=== PATIENT | male | born 1945 | race Caucasian/White ===

== ENCOUNTER → 2020-10-17 13:02 | Outpatient (BNVA) | payer MEDICARE, BC, SELFPAY | PROVIDERS: PCP Internal Medicine; Visit Provider Urology | DX: N40.1 Benign prostatic hyperplasia with lower urinary tract symptoms (principal); N13.8 Other obstructive and reflux uropathy; R97.20 Elevated prostate specific antigen [PSA] | CPT/HCPCS: 81002; 99212 ==

== ENCOUNTER → 2021-06-13 14:59 | Outpatient (BNVA) | payer MEDICARE, BC, SELFPAY | PROVIDERS: PCP Internal Medicine; Visit Provider Urology | DX: N40.1 Benign prostatic hyperplasia with lower urinary tract symptoms (principal); N13.8 Other obstructive and reflux uropathy; R97.20 Elevated prostate specific antigen [PSA] | CPT/HCPCS: 99212 ==

== ENCOUNTER → 2021-12-14 12:47 | Outpatient (BNVA) | payer MEDICARE, BC, SELFPAY | PROVIDERS: PCP Internal Medicine; Visit Provider Urology | DX: N40.1 Benign prostatic hyperplasia with lower urinary tract symptoms (principal); N13.8 Other obstructive and reflux uropathy; R97.20 Elevated prostate specific antigen [PSA] | CPT/HCPCS: Q3014 ==

== ENCOUNTER → 2022-12-17 13:16 | Outpatient (BNVA) | payer MEDICARE, BC, SELFPAY | PROVIDERS: PCP Internal Medicine; Visit Provider Urology | DX: R97.20 Elevated prostate specific antigen [PSA] (principal); N40.1 Benign prostatic hyperplasia with lower urinary tract symptoms; N13.8 Other obstructive and reflux uropathy | CPT/HCPCS: 51798; 99212 ==

== ENCOUNTER 2023-12-16 13:25 | Outpatient (AMB) | payer MEDICARE, BC, SELFPAY ==
--- NOTE | 2023-12-16 13:29 | A.OFFVIS_ITS ---
Intake Intake Visit Reasons: 1Y PVR/PSA(set) Intake Note: Patient is Present for Follow Up PSA Urology Medication: Finasteride Antibiotic Allergies:None Blood Thinners: Aspirin PVR: 29 Allergies No Known Allergies Allergy (Verified 12/16/23 13:35) HPI HPI Comments History of Present Illness Details David is a pleasant male. He is a patient of Dr. Hoff. He seen for the following urologic issues - elevated PSA - lower urinary tract symptoms PSA stabilized 2.4 Continue to follow yearly May use finasteride - Friday, Friday, Friday Elevated PSA/Abnormal MILVIA: He presents for further evaluation of elevated PSA Current management is medication with 5AR. Laboratory investigations include a total PSA evaluation March 2014 5.6, January 2017 6.4, 02/25 5.6 35%, 08/27 5.8 32%, 02/26 5.6 F 20%. - 05/30 2.4, 12/01 2.1, 12/02 2.3, 12/03 2.4 Individualized Prostate Cancer Risk Calculator 10% chance of high-grade prostate cancer, 20% chance of low-grade. Baseline risk with PSA of 4 is 7% high-grade, 19% low-grade., Would like to continue with observation and understands and accepts the risks of a possible delay in diagnosis. Overall symptoms are mild. Therapeutic plan will be continue with finasteride and intermittent review [facility] Medical History Diverticulosis Benign prostatic hyperplasia with lower urinary tract symptoms Elevated PSA Surgical History History of surgery Review of Systems Const Denies chills and Denies fever(s) Card Reports no additional complaints and Denies syncope Resp Denies cough GI Denies abdominal pain and Denies heartburn Reports as per HPI and Denies change in libido Neuro Denies syncope Psych Denies change in libido Endo Denies change in libido Physical Exam Const General: cooperative, healthy appearing, comfortable and no acute distress Orientation/consciousness: patient oriented x3 HEENT Face and sinus: Yes normal facial exam Mouth: moist mucous membranes Neck Neck: Yes normal visual inspection, Yes full ROM and Yes trachea midline Chest Chest palpation & inspection: normal inspection of the chest Resp Effort & Inspection: normal respiratory effort, able to speak in complete sentences and no respiratory distress GI Inspection: Yes normal to inspection Back/Spine/Pelvis Cervical Spine: normal cervical lordosis Thoracic/Lumbar Spine: thoracic and lumbar spine normal to inspection Skin General skin exam: no rashes or lesions noted Neuro General: patient oriented x3, gait normal, tone normal and moves all extremities Extrem General: Yes normal to inspection and Yes capillary refill normal Office Procedures Post Void Residual Post Residual Void Post Void Residual (PVR): 29 [id number] Void Residual by ultrasound Assessment & Plan Assessment & Plan (1) BPH w urinary obs/LUTS: Code(s): N40.1 - Benign prostatic hyperplasia with lower urinary tract symptoms; N13.8 - Other obstructive and reflux uropathy (2) Elevated PSA: Code(s): R97.20 - Elevated prostate specific antigen [PSA] Plan Twelve month follow-up Orders: Orders AMB Post Void Residual by ultrasound Today N13.8 - Other obstructive and reflux uropathy, N40.1 - Benign prostatic hyperplasia with lower urinary tract symptoms Prostate Specific Antigen 364 Days N13.8 - Other obstructive and reflux uropathy, N40.1 - Benign prostatic hyperplasia with lower urinary tract symptoms Patient Instructions: Imaging studies, laboratory and physical exam results were discussed and reviewed in detail. No major barriers to patient understanding were identified. An opportunity to ask questions regarding the treatment plan was provided. All questions were answered. The patient expressed understanding and agreement with the above treatment plan. The patient is aware they should contact our office by phone for worsening of their current condition or the appearance of new urologic symptoms. Compliance is encouraged with any medications and followup testing that is ordered. It is a privilege to participate in the urologic care of your patient. If you have any questions or concerns regarding treatment for the above conditions, or other urologic issues, please do not hesitate to contact me. The office telephone contact is [phone]. This note is constructed using voice recognition software. While every effort has been made to ensure accuracy purchasing assistant errors may have been included. Yours sincerely, Dr Matias Triana MD, JESS [facility] - Urology Providers of Expert, Compassionate Care for the Genitourinary System Coding Level of Care Code Est Pt Level 4 (30554) Diagnoses BPH w urinary obs/LUTS N40.1; N13.8 Elevated PSA R97.20 CPT Codes Post Residual Void - PVR CPT Code: 09077-Qbkv Void Residual by ultrasound ([id number])
== END 2023-12-16 14:14 | disposition home or self-care (01) ==
PROVIDERS: Visit Provider Urology
DX: N40.1 Benign prostatic hyperplasia with lower urinary tract symptoms (principal); N13.8 Other obstructive and reflux uropathy; R97.20 Elevated prostate specific antigen [PSA]
CPT/HCPCS: 99213

== ENCOUNTER → 2023-12-16 13:25 | Outpatient (BNVA) | payer MEDICARE, BC, SELFPAY | PROVIDERS: Visit Provider Urology | DX: N40.1 Benign prostatic hyperplasia with lower urinary tract symptoms (principal); N13.8 Other obstructive and reflux uropathy; R97.20 Elevated prostate specific antigen [PSA] | CPT/HCPCS: 51798; 99212 ==

== ENCOUNTER 2024-12-14 13:39 | Outpatient (AMB) | payer MEDICARE, BC, SELFPAY ==
--- NOTE | 2024-12-14 13:40 | MHC.OFFVIS ---
Intake Visit Reasons: 1Y PVR/PSA(set) Intake Note: Patient is present for 1y PVR/PSA Urology Medication:FINASTERIDE Antibiotic Allergy:NONE Blood Thinner:ASPIRIN Last PVR:29ML'S Todays PVR:77ML'S Manager Trade Required: No Allergies No Known Allergies Allergy (Verified 12/14/24 13:41) HPI Comments Details: David is a pleasant male. He is a patient of Dr. Hoff. He seen for the following urologic issues - elevated PSA - lower urinary tract symptoms Yearly follow-up PSA stabilized 2.4 Continue to follow yearly May use finasteride - Friday, Friday, Friday Elevated PSA/Abnormal MILVIA: He presents for further evaluation of elevated PSA Current management is medication with 5AR. Laboratory investigations include a total PSA evaluation March 2014 5.6, January 2017 6.4, 02/25 5.6 35%, 08/27 5.8 32%, 02/26 5.6 F 20%. - 05/30 2.4, 12/01 2.1, 12/02 2.3, 12/03 2.4, 12/04 2.1 Individualized Prostate Cancer Risk Calculator 10% chance of high-grade prostate cancer, 20% chance of low-grade. Baseline risk with PSA of 4 is 7% high-grade, 19% low-grade., Would like to continue with observation and understands and accepts the risks of a possible delay in diagnosis. Overall symptoms are mild. Therapeutic plan will be continue with finasteride and intermittent review [facility] Medical History Diverticulosis Benign prostatic hyperplasia with lower urinary tract symptoms Elevated PSA Surgical History History of surgery Office Procedures Post Void Residual Post Residual Void Post Void Residual (PVR): 77 [id number] Void Residual by ultrasound Results AMB Urinalysis, Automated UA Leukoctes 0 Raquel/uL Last Edit by HERVE Grubbs on 12/14/24 13:55 UA Nitrite Negative Last Edit by HERVE Grubbs on 12/14/24 13:55 UA Urobilinogen 0.2 mg/dL Last Edit by HERVE Grubbs on 12/14/24 13:55 UA Protein 0 mg/dL Last Edit by HERVE Grubbs on 12/14/24 13:55 UA pH 6.0 Last Edit by HERVE Grubbs on 12/14/24 13:55 UA Blood 0 Jayson/uL Last Edit by HERVE Grubbs on 12/14/24 13:55 UA Specific Franklin 1.010 Last Edit by HERVE Grubbs on 12/14/24 13:55 UA Ketone Negative Last Edit by HERVE Grubbs on 12/14/24 13:55 UA Bilirubin 0 mg/dL Last Edit by HERVE Grubbs on 12/14/24 13:55 UA Glucose 0 mg/dL Last Edit by HERVE Grubbs on 12/14/24 13:55 Assessment & Plan Assessment & Plan Orders: Orders AMB Urinalysis Automated Today Z13.9 - Encounter for screening, unspecified Coding CPT Codes Post Residual Void - PVR CPT Code: 29563-[id number] Void Residual by ultrasound ([id number])
--- OUTSIDE RECORDS SUMMARY | 2024-12-14 13:51 | XMS_ITS | Encounter Summary ---
Author Organization [facility] Address [address] [place] [id number] Care Team Providers Care Piping Engineer Name Role Phone Anderson Davis MD Primary Care Provider [phone] Encounter Details Date Type Department Care Team ([facility] st Contact Info) Description 01/29/[address] [facility] [address] [facility] [address] [place] [address] Hansel Lopez MD [address] [facility] [address] [place] [address] Social History Tobacco Use Types Packs/Day Years Used Date Smoking Tobacco: Former Cigarettes Q uit: 1989 Cigars Smokeless Tobacco: Never Alcohol Use Standard Drinks/Week Comments Not Currently 0 (1 standard drink = 0.6 oz pur e alcohol) Stopped Thanks2003 Sex and Gender Information Value Date Recorded Sex Assigned at Not on file Gender Identity Male 08/29/2022 12:09 PM EDT Sexual Orientation Heterosexual (straight) 08/29 12:09 PM EDT COVID-19 Exposure Response Date Recorded In the last 10 days, have yo u been in contact with someone who was confirmed or suspected to have Coronavirus/COVID-19? No / Unsure 01/29/2023 9:55 AM EDT documented as of this encounter Plan of Treatment Not on file documented as of this encounter Procedures Procedure Name Priority Date/Time Associated Diagnosis Comments PATHOLOGY REPORT 01/29/2023 12:0 0 AM EDT documented in this encounter Results * PATHOLOGY REPORT (01/29/2023 12:00 AM EDT) Hansel Lopez MD PATHOLOGY/CYTOLOGY O RDERABLES documented in this encounter Visit Diagnoses Not on filedocumented in this encounter Care Teams Piping Engineer Relationship Specialty Start Date End Date Anderson Davis MD [address] [place] [id number] PCP - General Internal Medicine 08/14/22 documented as of this encounter
--- OUTSIDE RECORDS SUMMARY | 2024-12-14 13:51 | XMS_ITS ---
Author Name [facility] Organization Unknown History of Medication Use Medication Directions Dispensed Refills Start Date End Date Stat us metoPROLOL TARTRATE (LOPRESSOR) 50 MG tablet 04/23/2019 active finasteride (PROSCAR) 5 MG tablet 11/10/2016 active polyethylene glycol-electrolytes (NuLYTELY, TRILYTE) 420 g solution Take as directed for Colonoscopy/GI Procedure. See administration instructions. 11/19/2022 01/29/2023 active Problems Problem Status Onset Date Problem Type Date of Resoluti on Source Colon cancer screening active 2022-11-19 [facility] History of alcohol use disorder active 2022-11-19 Problem[facility] Diverticulosis active 2022-11-[address] Family history of colon cancer active 2022-11-19 ProblemAct [facility]
--- OUTSIDE RECORDS SUMMARY | 2024-12-14 13:51 | XMS_ITS | Clinical Summary ---
Author Organization [facility] ity Address [address] [place] [address] Care Team Providers Care Pharmacist In Charge Owner Name Role Phone Conrad Cárdenas MD Primary Care Provider Social History Tobacco Use Types Packs/Day Years Used Date Smoking Tobacco: Never Assessed Sex and Gender Information Value Date Recorded Sex Assigned at Not on file Gender Identity Not on file Sexual Orientation Not on file Plan of Treatment Health Maintenance Due Date Last Done Comments DTaP,Tdap,and Td Vaccines (1 - Tdap) 1966 Zoster Vaccines (1 of 2) 1997 Pneumococcal Vaccine: 65+ Years (1 of 1 - PCV) 2012 RSV Immunization Patients 60 + Years Old (1 - 1-dose 75+ series) 2022 COVID-19 Vaccine (3 - 2023-2 5 season) 2024 01/25/2021, 01/04/2021 Influenza Vaccine (#1) 2024 HIB Vaccines Aged Out No longer eligi ble based on patient's age to complete this topic HPV Vaccines Aged Out No longer eligi ble based on patient's age to complete this topic Hepatitis A Vaccines Aged Out No long er eligible based on patient's age to complete this topic Hepatitis B Vaccines Aged Out No long er eligible based on patient's age to complete this topic IPV Vaccines Aged Out No longer eligi ble based on patient's age to complete this topic MMR Vaccines Aged Out No longer eligi ble based on patient's age to complete this topic Meningococcal ACWY Vaccine Aged Out N o longer eligible based on patient's age to complete this topic RSV Immunization Patients Under 20 months Aged Out No longer eligible b ased on patient's age to complete this topic Varicella Vaccines Aged Out No longer eligible based on patient's age to complete this topic Care Teams Pharmacist In Charge Owner Relationship Specialty Start Date End Date Conrad Cárdenas MD [facility] [id number] [place] [address] PCP - General Cardiothoracic Surgery 04/22/19
--- OUTSIDE RECORDS SUMMARY | 2024-12-14 13:51 | XMS_ITS | Clinical Summary ---
Author Organization [facility] Address [address] [place] [address] Care Team Providers Care Instructor Creeler Name Role Phone Conrad Cárdenas MD Primary Care Provider [phone] Immunizations Name Administration Dates Next Due Covid-19 (Pfizer) Dilution Required 01/25/2021,0 01/04/2021 Social History Tobacco Use Types Packs/Day Years Used Date Smoking Tobacco: Never Assessed Sex and Gender Information Value Date Recorded Sex Assigned at Male 01/03/2021 1:20 PM EST Gender Identity Not on file Sexual Orientation Not on file Plan of Treatment Health Maintenance Due Date Last Done Comments Hepatitis C Screening 1945 Depression Screening 1959 Preventative Health Evaluation 1965 DTap / Tdap / Td (1 - Tdap) 1966 Shingrix-Zoster Vaccine (1 o f 2) 1997 Fall Risk Assessment 2012 Pneumococcal Vaccine (1 of 1 - PCV) 2012 RSV Adult > 60+ Yrs or (1 - 1-dose 75+ series) 2022 COVID-19 Vaccine (3 - 2023-2 5 season) 2024 01/25/2021, 01/04/2021 Influenza Vaccine (#1) 2024 Hepatitis B Vaccines Aged Out No long er eligible based on patient's age to complete this topic RSV Ped < 20 months Aged Out No longe r eligible based on patient's age to complete this topic Care Teams Instructor Creeler Relationship Specialty Start Date End Date Conrad Cárdenas MD [address] [place] [address] [address] [facility] [place] [address] PCP - General Cardiothoracic Surgery 04/22/19
--- OUTSIDE RECORDS SUMMARY | 2024-12-14 13:51 | XMS_ITS | Clinical Summary ---
Author Organization [facility] Address [address] [place] [address] Care Team Providers Care Pole Frame Construction Worker Name Role Phone Anderson Davis MD Primary Care Provider [phone] Allergies No known active allergies Medications Medication Sig Dispensed Refills Start Date End Date Status Acetaminophen (TYLENOL) 500 MG coapsule 2 qd Active atorvastatin (LIPITOR) 40 MG tablet 02/08/2019 Active finasteride (PROSCAR) 5 MG tablet 11/10/2016 Active metoPROLOL TARTRATE (LOPRESSOR) 50 MG tablet 04/23/2019 Active aspirin enteric coated (ECOTRIN LOW STRENGTH) 81 MG EC tablet 04/23/2019 Active loratadine (CLARITIN) 10 MG tablet 11/10/2009 Active Active Problems Problem Noted Date Diagnosed Date Diverticulosis 11/19/2022 Family history of colon cancer 11/19/2022 History of alcohol use disorder 11/19/2022 Resolved Problems Problem Noted Date Diagnosed Date Resolved Date Colon cancer screening 11/19/202201/20 Family History Medical History Relation Name Comments Alcohol abuse Father David Mtz. Heart attack Father David Mtz. Pancreatitis Father David Mtz. Stroke Maternal Grandfather Steven Cancer, other Maternal Grandmother ? Rectal Cancer Colon cancer Maternal Great-Grandmother Alcohol abuse Mother Jelena Cancer, other Mother Jelena Breast cancer Sister Mey Relation Name Status Comments Father David Mtz. Maternal Grandfather Steven Maternal Grandmother ? Maternal Great-Grandmother Mother Jelena Sister Mey Social History Tobacco Use Types Packs/Day Years Used Date Smoking Tobacco: Former Cigarettes Q uit: 1989 Cigars Smokeless Tobacco: Never Tobacco Cessation:Counseling Given: Not Answered Alcohol Use Standard Drinks/Week Comments Not Currently 0 (1 standard drink = 0.6 oz pur e alcohol) Stopped Thanks2003 Sex and Gender Information Value Date Recorded Sex Assigned at Not on file Gender Identity Male 08/29/2022 12:09 PM EDT Sexual Orientation Heterosexual (straight) 08/29 12:09 PM EDT Last Filed Vital Signs Vital Sign Reading Time Taken Comments Blood Pressure 139/71 01/29/2023 12:22 PM EDT Pulse 57 01/29/2023 12:22 PM EDT Temperature 36.3 ??C (97.3 ??F) 01/29/2023 11:55 AM E DT Respiratory Rate 16 01/29/2023 12:22 PM EDT Oxygen Saturation 100% 01/29/2023 12:22 PM EDT Inhaled Oxygen Concentration - - Weight 107 kg (236 lb) 01/22/2023 8:09 AM EDT Height 180.3 cm (5' 11 ) 11/19/2022 10:29 AM EST Body Mass Index 32.92 11/19/2022 10:29 AM EST Plan of Treatment Health Maintenance Due Date Last Done Comments Hepatitis C Virus Screening 1945 DTaP/Tdap/Td Vaccines (1 - Tdap) 1966 Pneumococcal Vaccines 50+ (1 of 1 - PCV) 1997 Zoster (Shingles) Vaccine (1 of 2) 1997 RSV Vaccine 60 years and older and Patients (1 - 1-dose 75+ series) 2022 Influenza Vaccine 06/10/2024 08/13/2022, 09/11/2021 COVID-19 Vaccine ( season) 2024 07/24/2022, 02/28/2022, 10/01/2021, Additional history exists Colonoscopy Discontinued 01/29/2023 Hepatitis B Vaccines Aged Out No long er eligible based on patient's age to complete this topic Care Teams Pole Frame Construction Worker Relationship Specialty Start Date End Date Anderson Davis MD [address] [address] PCP - General Internal Medicine 08/14/22
== END 2024-12-14 14:24 | disposition home or self-care (01) ==
PROVIDERS: PCP Internal Medicine; Visit Provider Urology
DX: Z13.9 Encounter for screening, unspecified (principal)

== ENCOUNTER → 2024-12-14 13:39 | Outpatient (BNVA) | payer MEDICARE, BC, SELFPAY | PROVIDERS: PCP Internal Medicine; Visit Provider Urology | DX: R97.20 Elevated prostate specific antigen [PSA] (principal); N40.1 Benign prostatic hyperplasia with lower urinary tract symptoms; N13.8 Other obstructive and reflux uropathy | CPT/HCPCS: 51798; 81003; 99212 ==